=== PATIENT | male | born 1965 | race Caucasian/White ===

== ENCOUNTER 2016-07-17 14:40 | Inpatient (IN) | payer OTHER ==
[2016-07-17 15:24] VITALS: BMI 20.7
--- NOTE | 2016-07-17 17:20 | HP ---
CIWA Score - CIWA Score Nausea/Vomitin Muscle Tremors: 3 Anxiety: 3 Agitation: 3 Paroxysmal Sweats: 2 Orientation: 0-Oriented Tacttile Disturbances: 2-Mild Itch/Numbness/Burn Auditory Disturbances: 2-Mild Harshness/Frighten Visual Disturbances: 2-Mild Sensitivity Headache: 2-Mild CIWA-Ar Total Score: 22 Admission ROS BHS - HPI Chief Complaint: i need help to stop drinking alcohol,cocaine and marijuana,seeking detox,last detox 09/07/14 to 09/10/14 several admissions in the past longest period of sobriety 4 years Allergies/Adverse Reactions: Allergies Allergy/AdvReac Type Severity Reaction Status Date / Time No Known Drug Allergies Allergy Verified 09/07/14 19:35 TUNA FISH Allergy Uncoded 09/07/14 19:05 History of Present Illness: this 50 years old male with alcohol,cocaine and marijuana for detox as mentioned above - Ebola screening Have you traveled outside of the country in the last 21 days: No Have you had contact with anyone from an Ebola affected area: No Have you been sick,other than usual withdrawal symptoms: No Do you have a fever: No - Review of Systems Constitutional: Loss of Appetite, Malaise, Night Sweats, Changes in sleep, Weakness, Unintentional Wgt. Loss EENT: reports: Nose Congestion Respiratory: reports: No Symptoms reported, Other (asthma) Cardiac: reports: No Symptoms Reported GI: reports: Diarrhea, Nausea, Vomiting, Indigestion, Abdominal cramping : reports: No Symptoms Reported Musculoskeletal: reports: Back Pain, Muscle Pain Integumentary: reports: Dryness Neuro: reports: Headache, Tremors Endocrine: reports: No Symptoms Reported Hematology: reports: No Symptoms Reported Psychiatric: reports: No Sypmtoms Reported, Judgement Intact, Mood/Affect Appropiate, Orientated x3 (bipoloar disorder), other Patient History - Patient Medical History Hx Anemia: No Hx Asthma: No Hx Chronic Obstructive Pulmonary Disease (COPD): No Hx Cancer: No Hx Cardiac Disorders: No Hx Congestive Heart Failure: No Hx Hypertension: No Hx Hypercholesterolemia: No Hx Pacemaker: No HX Cerebrovascular Accident: No Hx Seizures: No Hx Dementia: No Hx Diabetes: No Hx Gastrointestinal Disorders: No Hx Liver Disease: No Hx Genitourinary Disorders: No Hx Sexually Transmitted Disorders: No Hx Renal Disease (ESRD): No Hx Thyroid Disease: No Hx Human Immunodeficiency Virus (HIV): No (01/11 NEGATIVE LAST) Hx Hepatitis C: No Hx Depression: Yes (NON COMPLIANCE) Hx Suicide Attempt: No Hx Bipolar Disorder: Yes Hx Schizophrenia: No Other Medical History: no suicidal,no homicidal - Patient Surgical History Past Surgical History: Yes Hx Neurologic Surgery: No Hx Cataract Extraction: No Hx Cardiac Surgery: No Hx Lung Surgery: No Hx Breast Surgery: No Hx Breast Biopsy: No Hx Abdominal Surgery: Yes (LAP CHOLECYSTECTOMY 2013 [place]) Hx Appendectomy: No Hx Cholecystectomy: No Hx Genitourinary Surgery: No Hx Section: No Hx Orthopedic Surgery: No Anesthesia Reaction: No - PPD History Previous Implant?: Yes Implanted On Prior [facility] Admission?: Yes Date: 09/09/14 Results: 0 mm PPD to be Administered?: Yes - Smoking Cessation Smoking history: Current every day smoker Have you smoked in the past 12 months: Yes Aproximately how many cigarettes per day: 20 Cigars Per Day: 0 Hx Chewing Tobacco Use: No Initiated information on smoking cessation: Yes 'Breaking Loose' booklet given: 07/17/16 - Substance & Tx. History Hx Alcohol Use: Yes Hx Substance Use: Yes Substance Use Type: Alcohol, Cocaine, Marijuana Hx Substance Use Treatment: Yes ([facility] 09/07/14 to 09/11/14) - Substances Abused Alcohol Route: Oral Frequency: Daily Amount used: 1 pint of bacardi/6 packs of 16 ozs of beer Age of first use: 27 Date of Last Use: 07/17/16 Cocaine Route: Inhalation Frequency: 1-2 times per week Amount used: 20$ Age of first use: 27 Date of Last Use: 07/16/16 Marijuana/Hashish Route: Smoking Frequency: 1-3 times last 30 days Amount used: 5$ Age of first use: 27 Date of Last Use: 07/16/16 Family Disease History - Family Disease History Family History: Denies Admission Physical Exam [facility] - Vital Signs Vital Signs: Vital Signs - 24 hr 07/17/16 15:22 Temperature 97 F L Pulse Rate 82 Respiratory 20 Rate Blood Pressure 124/75 - Physical General Appearance: Yes: Moderate Distress, Tremorous, Irritable, Sweating HEENTM: Yes: Normocephalic, ANGELA, Pharynx Normal Respiratory: Yes: Lungs Clear, Normal Breath Sounds, No Respiratory Distress Neck: Yes: Within Normal Limits, Supple, Trachea in good position Breast: Yes: Within Normal Limits Cardiology: Yes: Within Normal Limits, Regular Rhythm, Regular Rate, S1, S2 Abdominal: Yes: Within Normal Limits, Normal Bowel Sounds, Non Tender, Flat, Soft Genitourinary: Yes: Within Normal Limits Musculoskeletal: Yes: Within Normal Limits, full range of Motion, Back pain Extremities: Yes: Within Normal Limits, Normal Range of Motion, Tremors Neurological: Yes: service officer II-XII NML intact, Fully Oriented, Motor Strength 5/5 Integumentary: Yes: Dry Lymphatic: Yes: Within Normal Limits - Diagnostic (1) Alcohol dependence with uncomplicated withdrawal Current Visit: Yes Status: Acute (2) Cannabis dependence Current Visit: No Status: Acute (3) Cocaine dependence Current Visit: No Status: Acute (4) Bipolar disorder Current Visit: No Status: Active (5) Nicotine dependence Current Visit: No Status: Acute (6) Weight loss Current Visit: Yes Status: Acute Cleared for Admission [facility] - Detox or Rehab [facility] Level of Care: Medically Managed Detox Regimen/Protocol: Valium S Breath Alcohol Content Breath Alcohol Content: 0 Urine Drug Screen - Results Drug Screen Negative: No Urine Drug Screen Results: PETER-Cocaine
[2016-07-17] MEDS ORDERED: guaiFENesin/D-METHORPHAN HB 10 ML UNIT-DOSE CUPS PO PRN (17:32)
[2016-07-17] MEDS ORDERED: MAG HYDROX/AL HYDROX/SIMETH 30 ML UNIT-DOSE CUP PO PRN (17:32)
[2016-07-17] MEDS ORDERED: MENTHOL/PHENOL 1 EACH UD MM PRN (17:32)
[2016-07-17] MEDS ORDERED: hydrOXYzine PAMOATE 50 MG CAPSULE (FP) PO PRN (17:32)
[2016-07-17] MEDS ORDERED: diazePAM 5 MG TABLET PO ONE (17:32)
[2016-07-17] MEDS ORDERED: MAGNESIUM CITRATE 300 ML BOTTLE PO PRN (17:32)
[2016-07-17] MEDS ORDERED: ACETAMINOPHEN 325 MG TABLET (FP) PO PRN (17:32)
[2016-07-17] MEDS ORDERED: diphenhydrAMINE HCL 50 MG CAPSULE PO PRN (17:32)
[2016-07-17] MEDS ORDERED: IBUPROFEN 400 MG TABLET (FP) PO PRN (17:32)
[2016-07-17] MEDS ORDERED: MAGNESIUM HYDROX 2400MG/30ML ORAL SUSPENSION 30 ML CUP PO PRN (17:32)
[2016-07-17] MEDS ORDERED: P-EPHED 60MG/TRIPROLIDI 2.5MG TABLET PO PRN (17:32)
[2016-07-17] MEDS ORDERED: LOPERAMIDE HCL 2 MG CAPSULE PO PRN (17:32)
[2016-07-17] MEDS ORDERED: ALBUTEROL SO4 6.7 GM HFA INHALER IH PRN (18:58)
[2016-07-17] MEDS: NICOTINE 21 MG/24 HOURS TOPICAL PATCH TD SCH (19:00)
[2016-07-17 19:36] LABS: URINE APPEARANCE CLEAR; URINE BILIRUBIN NEGATIVE (NEGATIVE); URINE BLOOD NEGATIVE (NEGATIVE); URINE COLOR YELLOW; URINE GLUCOSE (UA) NEGATIVE (NEGATIVE); URINE KETONE NEGATIVE (NEGATIVE); URINE LEUK ESTERASE NEGATIVE (NEGATIVE); URINE NITRITE NEGATIVE (NEGATIVE); URINE PROTEIN NEGATIVE (NEGATIVE); URINE UROBILINOGEN NEGATIVE E.U./dl (0.2-1.0)
[2016-07-17] MEDS: THIAMINE HCL 100 MG TABLET (FP) PO SCH (22:52)
[2016-07-17] MEDS: QUEtiapine FUMARATE 100 MG TABLET (FP) PO SCH (22:52)
[2016-07-17] MEDS: diazePAM 5 MG TABLET PO SCH (22:52)
[2016-07-18] MEDS: diazePAM 5 MG TABLET PO SCH ×3 (06:01→22:37)
[2016-07-18 10:34] LABS: ALBUMIN 3.5 g/dl (3.4-5.0); ANION GAP 7 (8-16); CALCIUM 8.6 mg/dL (8.5-10.1); CO2 28 mmol/L (21-32); GLUCOSE,RANDOM 99 mg/dL (74-106); SGOT/AST 16 U/L (15-37); SGPT/ALT 19 U/L (12-78)
[2016-07-18] MEDS: NICOTINE 21 MG/24 HOURS TOPICAL PATCH TD SCH (10:35)
[2016-07-18] MEDS: PRENATAL VITAMINS W/ FOLIC ACID TABLET (FP) PO SCH (10:35)
[2016-07-18 10:37] LABS: ALK PHOS 93 U/L (45-117); BILIRUBIN,TOTAL 0.3 mg/dL (0.2-1.0); COCKROFT - GAULT 66.88; CREATININE 1.2 mg/dL (0.7-1.3); TOT PROT 6.6 g/dl (6.4-8.2)
--- NOTE | 2016-07-18 11:06 | EKG ---
Test Reason : Blood Pressure : / mmHG Vent. Rate : 068 BPM Atrial Rate : 068 BPM P-R Int : 116 ms QRS Dur : 088 ms QT Int : 438 ms P-R-T Axes : 062 048 060 degrees QTc Int : 465 ms NORMAL SINUS RHYTHM NORMAL ECG NO PREVIOUS ECGS AVAILABLE Confirmed by MD JOSEFA, SHNAI ([id number]) on 07/18/2016 11:06:13 AM Referred By: Confirmed By:SHANI RIVERO MD
[2016-07-18 11:20] LABS: MCH 30.2 pg (25.7-33.7); MCHC 33.3 g/dl (32.0-35.9); MEAN CELL VOLUME 90.8 fl (80-96); MEAN PLT VOLUME 9.1 fl (7.5-11.1); PLATELET COUNT 332 K/MM3 (134-434); RDW 14.8 % (11.9-15.9); WHITE BLOOD COUNT 7.8 K/mm3 (4.0-10.0)
[2016-07-18 11:28] LABS: HIV 1 & 2 AB NEGATIVE; HIV 1 AGp24 NEGATIVE
--- NOTE | 2016-07-18 17:18 | PN ---
S CIWA - CIWA Score Nausea/Vomitin Muscle Tremors: 4-Moderate,w/Arms Extend Anxiety: 4-Mod. Anxious/Guarded Agitation: 4-Moderately Restless Paroxysmal Sweats: No Perspiration Orientation: 0-Oriented Tacttile Disturbances: 1-Very Mild Itch/Numbness Auditory Disturbances: 0-None Visual Disturbances: 0-None Headache: 3-Moderate CIWA-Ar Total Score: 19 BHS Progress Note (SOAP) Subjective: Sweating, anxious, tremor, chills, interrupted sleep Objective: 07/18/16 17:17 Last Vital Signs Temp Pulse Resp BP Pulse Ox 97 F L 83 20 112/74 07/18/16 13:53 07/18/16 13:53 07/18/16 13:53 07/18/16 13:53 Laboratory Tests 07/17/16 07/18/16 07/18/16 19:00 07:40 07:40 WBC 7.8 RBC 4.57 Hgb 13.8 Hct 41.5 MCV 90.8 MCHC 33.3 RDW 14.8 Plt Count 332 MPV 9.1 Sodium 141 Potassium 4.1 Chloride 106 Carbon Dioxide 28 Anion Gap 7 L BUN 20 H D Creatinine 1.2 Creat Clearance w eGFR > 60 Random Glucose 99 Calcium 8.6 Total Bilirubin 0.3 D AST 16 ALT 19 Alkaline Phosphatase 93 D Total Protein 6.6 Albumin 3.5 Urine Color Yellow Urine Appearance Clear Urine pH 5.0 Ur Specific [place] >= 1.030 H Urine Protein Negative Urine Glucose (UA) Negative Urine Ketones Negative Urine Blood Negative Urine Nitrite Negative Urine Bilirubin Negative Urine Urobilinogen Negative Ur Leukocyte Esterase Negative RPR Titer HIV 1&2 Antibody Screen HIV P24 Antigen 07/18/16 07/18/16 07:40 07:40 WBC RBC Hgb Hct MCV MCHC RDW Plt Count MPV Sodium Potassium Chloride Carbon Dioxide Anion Gap BUN Creatinine Creat Clearance w eGFR Random Glucose Calcium Total Bilirubin AST ALT Alkaline Phosphatase Total Protein Albumin Urine Color Urine Appearance Urine pH Ur Specific [place] Urine Protein Urine Glucose (UA) Urine Ketones Urine Blood Urine Nitrite Urine Bilirubin Urine Urobilinogen Ur Leukocyte Esterase RPR Titer Nonreactive HIV 1&2 Antibody Screen Negative HIV P24 Antigen Negative Labs noted Assessment: 07/18/16 17:17 Withdrawal symptoms Plan: Continue detox Encouraged to drink lots of water
[2016-07-18] MEDS: QUEtiapine FUMARATE 100 MG TABLET (FP) PO SCH (22:35)
[2016-07-18] MEDS: THIAMINE HCL 100 MG TABLET (FP) PO SCH (22:35)
[2016-07-19] MEDS: diazePAM 5 MG TABLET PO PRN (06:08)
[2016-07-19] MEDS: PRENATAL VITAMINS W/ FOLIC ACID TABLET (FP) PO SCH (10:37)
[2016-07-19] MEDS: diazePAM 5 MG TABLET PO SCH ×2 (10:38→23:00)
[2016-07-19] MEDS: NICOTINE 21 MG/24 HOURS TOPICAL PATCH TD SCH (10:38)
[2016-07-19] MEDS: BACITRACIN 0.9 GM PACKET TP SCH ×2 (11:13→22:56)
--- NOTE | 2016-07-19 11:13 | PN ---
S Progress Note Note: Patient was found in bed very irritable. He did not want to be seen
[2016-07-19] MEDS ORDERED: ONDANSETRON *ODT* 4 MG TABLET SL PRN (13:11)
--- NOTE | 2016-07-19 13:17 | PN ---
S CIWA - CIWA Score Nausea/Vomitin Muscle Tremors: 3 Anxiety: 4-Mod. Anxious/Guarded Agitation: 3 Paroxysmal Sweats: 2 Orientation: 4Disoriented Place/Person Tacttile Disturbances: 0-None Auditory Disturbances: 0-None Visual Disturbances: 0-None Headache: 3-Moderate CIWA-Ar Total Score: 22 BHS Progress Note (SOAP) Subjective: Lower Back Ache, H/A, Interrupted Sleep, Tremors. Objective: PT. A & O X 2 (DISORIENTED ABOUT CURRENT LOCATION). PT. OBSERVED AMBULATING ON UNIT. 07/19/16 13:13 Vital Signs Temperature 97.2 F L 07/19/16 09:58 Pulse Rate 66 07/19/16 09:58 Respiratory Rate 18 07/19/16 09:58 Blood Pressure 110/76 07/19/16 09:58 O2 Sat by Pulse Oximetry (%) Laboratory Tests 07/17/16 07/18/16 07/18/16 19:00 07:40 07:40 WBC 7.8 RBC 4.57 Hgb 13.8 Hct 41.5 MCV 90.8 MCHC 33.3 RDW 14.8 Plt Count 332 MPV 9.1 Sodium 141 Potassium 4.1 Chloride 106 Carbon Dioxide 28 Anion Gap 7 L BUN 20 H D Creatinine 1.2 Creat Clearance w eGFR > 60 Random Glucose 99 Calcium 8.6 Total Bilirubin 0.3 D AST 16 ALT 19 Alkaline Phosphatase 93 D Total Protein 6.6 Albumin 3.5 Urine Color Yellow Urine Appearance Clear Urine pH 5.0 Ur Specific [place] >= 1.030 H Urine Protein Negative Urine Glucose (UA) Negative Urine Ketones Negative Urine Blood Negative Urine Nitrite Negative Urine Bilirubin Negative Urine Urobilinogen Negative Ur Leukocyte Esterase Negative RPR Titer HIV 1&2 Antibody Screen HIV P24 Antigen 07/18/16 07/18/16 07:40 07:40 WBC RBC Hgb Hct MCV MCHC RDW Plt Count MPV Sodium Potassium Chloride Carbon Dioxide Anion Gap BUN Creatinine Creat Clearance w eGFR Random Glucose Calcium Total Bilirubin AST ALT Alkaline Phosphatase Total Protein Albumin Urine Color Urine Appearance Urine pH Ur Specific [place] Urine Protein Urine Glucose (UA) Urine Ketones Urine Blood Urine Nitrite Urine Bilirubin Urine Urobilinogen Ur Leukocyte Esterase RPR Titer Nonreactive HIV 1&2 Antibody Screen Negative HIV P24 Antigen Negative LABS NOTED. Assessment: 07/19/16 13:15 WITHDRAWAL SYMPTOMS. Plan: CONTINUE DETOX. REMINDED PATIENT ABOUT IMPORTANCE OF TAKING ALL MEDICATIONS, INCLUDING DETOX MEDICATIONS, PRESCRIBED AND AT PRESCRIBED TIMES. PATIENT VERBALIZED UNDERSTANDING OF RECOMMENDATION.
[2016-07-19] MEDS ORDERED: diphenhydrAMINE HCL 25 MG CAPSULE (FP) PO PRN (20:33)
[2016-07-19] MEDS ORDERED: LIDOCAINE HCL 5% TOP OINTMENT 50 GM TUBE TP PRN (20:40)
[2016-07-19] MEDS: THIAMINE HCL 100 MG TABLET (FP) PO SCH (22:58)
[2016-07-19] MEDS: QUEtiapine FUMARATE 100 MG TABLET (FP) PO SCH (22:58)
[2016-07-20] MEDS: diazePAM 5 MG TABLET PO PRN (05:55)
[2016-07-20 09:36] VITALS: BP 130/84; PULSE 78; TEMP 97
[2016-07-20] MEDS: diazePAM 5 MG TABLET PO SCH (10:39)
[2016-07-20] MEDS: BACITRACIN 0.9 GM PACKET TP SCH (10:39)
[2016-07-20] MEDS: NICOTINE 21 MG/24 HOURS TOPICAL PATCH TD SCH (10:39)
[2016-07-20] MEDS: PRENATAL VITAMINS W/ FOLIC ACID TABLET (FP) PO SCH (10:39)
--- NOTE | 2016-07-20 12:10 | PN ---
BHS Progress Note (SOAP) Subjective: Sweating,interrupted sleep,restless Objective: 07/20/16 12:09 Vital Signs - 8 hr 07/20/16 07/20/16 06:28 09:35 Temperature 97.4 F L 97.0 F L Pulse Rate 82 78 Respiratory 18 18 Rate Blood Pressure 114/70 130/84 Laboratory Last Values WBC 7.8 K/mm3 (4.0-10.0) 07/18/16 07:40 RBC 4.57 M/mm3 (4.00-5.60) 07/18/16 07:40 Hgb 13.8 GM/dL (11.7-16.9) 07/18/16 07:40 Hct 41.5 % (35.4-49) 07/18/16 07:40 MCV 90.8 fl (80-96) 07/18/16 07:40 MCHC 33.3 g/dl (32.0-35.9) 07/18/16 07:40 RDW 14.8 % (11.9-15.9) 07/18/16 07:40 Plt Count 332 K/MM3 (134-434) 07/18/16 07:40 MPV 9.1 fl (7.5-11.1) 07/18/16 07:40 Sodium 141 mmol/L (136-145) 07/18/16 07:40 Potassium 4.1 mmol/L (3.5-5.1) 07/18/16 07:40 Chloride 106 mmol/L (98-107) 07/18/16 07:40 Carbon Dioxide 28 mmol/L (21-32) 07/18/16 07:40 Anion Gap 7 (8-16) L 07/18/16 07:40 BUN 20 mg/dL (7-18) H D 07/18/16 07:40 Creatinine 1.2 mg/dL (0.7-1.3) 07/18/16 07:40 Creat Clearance w eGFR > 60 (>60) 07/18/16 07:40 Random Glucose 99 mg/dL (74-106) 07/18/16 07:40 Calcium 8.6 mg/dL (8.5-10.1) 07/18/16 07:40 Total Bilirubin 0.3 mg/dL (0.2-1.0) D 07/18/16 07:40 AST 16 U/L (15-37) 07/18/16 07:40 ALT 19 U/L (12-78) 07/18/16 07:40 Alkaline Phosphatase 93 U/L (45-117) D 07/18/16 07:40 Total Protein 6.6 g/dl (6.4-8.2) 07/18/16 07:40 Albumin 3.5 g/dl (3.4-5.0) 07/18/16 07:40 Urine Color Yellow 07/17/16 19:00 Urine Appearance Clear 07/17/16 19:00 Urine pH 5.0 (5.0-8.0) 07/17/16 19:00 Ur Specific [place] >= 1.030 (1.005-1.025) H 07/17/16 19:00 Urine Protein Negative (NEGATIVE) 07/17/16 19:00 Urine Glucose (UA) Negative (NEGATIVE) 07/17/16 19:00 Urine Ketones Negative (NEGATIVE) 07/17/16 19:00 Urine Blood Negative (NEGATIVE) 07/17/16 19:00 Urine Nitrite Negative (NEGATIVE) 07/17/16 19:00 Urine Bilirubin Negative (NEGATIVE) 07/17/16 19:00 Urine Urobilinogen Negative E.U./dl (0.2-1.0) 07/17/16 19:00 Ur Leukocyte Esterase Negative (NEGATIVE) 07/17/16 19:00 RPR Titer Nonreactive (NONREACTIVE) 07/18/16 07:40 Hepatitis C Antibody 0.1 s/co ratio (0.0-0.9) 07/18/16 07:40 HIV 1&2 Antibody Screen Negative 07/18/16 07:40 HIV P24 Antigen Negative 07/18/16 07:40 labs noted Assessment: 07/20/16 12:10 Withdrawal sx. Plan: Continue detox
--- NOTE | 2016-07-20 15:50 | DS ---
[facility] Detox Discharge Summary Admission Date: 07/17/16 Discharge Date: 07/20/16 - History Present History: Alcohol Dependence, Cannabis Dependence, Cocaine Dependence Pertinent Past History: Asthma - Physical Exam Results Vital Signs: Vital Signs Temperature 97.0 F L 07/20/16 09:35 Pulse Rate 78 07/20/16 09:35 Respiratory Rate 18 07/20/16 09:35 Blood Pressure 130/84 07/20/16 09:35 O2 Sat by Pulse Oximetry (%) Pertinent Admission Physical Exam Findings: Withdrawal sx. Laboratory Last Values WBC 7.8 K/mm3 (4.0-10.0) 07/18/16 07:40 RBC 4.57 M/mm3 (4.00-5.60) 07/18/16 07:40 Hgb 13.8 GM/dL (11.7-16.9) 07/18/16 07:40 Hct 41.5 % (35.4-49) 07/18/16 07:40 MCV 90.8 fl (80-96) 07/18/16 07:40 MCHC 33.3 g/dl (32.0-35.9) 07/18/16 07:40 RDW 14.8 % (11.9-15.9) 07/18/16 07:40 Plt Count 332 K/MM3 (134-434) 07/18/16 07:40 MPV 9.1 fl (7.5-11.1) 07/18/16 07:40 Sodium 141 mmol/L (136-145) 07/18/16 07:40 Potassium 4.1 mmol/L (3.5-5.1) 07/18/16 07:40 Chloride 106 mmol/L (98-107) 07/18/16 07:40 Carbon Dioxide 28 mmol/L (21-32) 07/18/16 07:40 Anion Gap 7 (8-16) L 07/18/16 07:40 BUN 20 mg/dL (7-18) H D 07/18/16 07:40 Creatinine 1.2 mg/dL (0.7-1.3) 07/18/16 07:40 Creat Clearance w eGFR > 60 (>60) 07/18/16 07:40 Random Glucose 99 mg/dL (74-106) 07/18/16 07:40 Calcium 8.6 mg/dL (8.5-10.1) 07/18/16 07:40 Total Bilirubin 0.3 mg/dL (0.2-1.0) D 07/18/16 07:40 AST 16 U/L (15-37) 07/18/16 07:40 ALT 19 U/L (12-78) 07/18/16 07:40 Alkaline Phosphatase 93 U/L (45-117) D 07/18/16 07:40 Total Protein 6.6 g/dl (6.4-8.2) 07/18/16 07:40 Albumin 3.5 g/dl (3.4-5.0) 07/18/16 07:40 Urine Color Yellow 07/17/16 19:00 Urine Appearance Clear 07/17/16 19:00 Urine pH 5.0 (5.0-8.0) 07/17/16 19:00 Ur Specific [place] >= 1.030 (1.005-1.025) H 07/17/16 19:00 Urine Protein Negative (NEGATIVE) 07/17/16 19:00 Urine Glucose (UA) Negative (NEGATIVE) 07/17/16 19:00 Urine Ketones Negative (NEGATIVE) 07/17/16 19:00 Urine Blood Negative (NEGATIVE) 07/17/16 19:00 Urine Nitrite Negative (NEGATIVE) 07/17/16 19:00 Urine Bilirubin Negative (NEGATIVE) 07/17/16 19:00 Urine Urobilinogen Negative E.U./dl (0.2-1.0) 07/17/16 19:00 Ur Leukocyte Esterase Negative (NEGATIVE) 07/17/16 19:00 RPR Titer Nonreactive (NONREACTIVE) 07/18/16 07:40 Hepatitis C Antibody 0.1 s/co ratio (0.0-0.9) 07/18/16 07:40 HIV 1&2 Antibody Screen Negative 07/18/16 07:40 HIV P24 Antigen Negative 07/18/16 07:40 labs noted - Treatment Hospital Course: Detox Protocol Followed, Detoxed Safely, Responded well, Discharged Condition Good Patient has Accepted a Rehab Referral to: 12 step meetings - Medication Discharge Medications: Ambulatory Orders Albuterol Sulfate *Inhaler* 2 ih PO PRN 03/04/12 Ambien 10 mg PO HS 03/04/12 Quetiapine Fumarate [Seroquel -] 100 mg PO HS #30 tab 09/09/14 - Diagnosis (1) Alcohol dependence with uncomplicated withdrawal Status: Acute (2) Cannabis dependence Status: Acute (3) Cocaine dependence Status: Acute Qualifiers: Substance use status: uncomplicated Qualified Code(s): F14.20 - Cocaine dependence, uncomplicated (4) Asthma Status: Acute Qualifiers: Asthma severity: mild intermittent Asthma complication type: uncomplicated Qualified Code(s): J45.20 - Mild intermittent asthma, uncomplicated - AMA Did Patient Leave Against Medical Advice: No
[2016-07-21] MEDS ORDERED: diazePAM 5 MG TABLET PO SCH (10:00)
== END 2016-07-20 13:24 | disposition home or self-care (01) | DRG 774 ==
LOC: YASAS 14:40 → Y3N 17:29
PROVIDERS: ADMIT Internal Medicine; ATTEND Internal Medicine
PROC: HZ2ZZZZ Detoxification Services for Substance Abuse Treatment (ICD-10-PCS; principal; 2016-07-17)
DX: F10.230 Alcohol dependence with withdrawal, uncomplicated (principal); F14.20 Cocaine dependence, uncomplicated; F12.20 Cannabis dependence, uncomplicated; F17.210 Nicotine dependence, cigarettes, uncomplicated; F31.9 Bipolar disorder, unspecified; J45.20 Mild intermittent asthma, uncomplicated; Z87.898 Personal history of other specified conditions; Z91.14 Patient's other noncompliance with medication regimen; Z59.0 Homelessness
CPT/HCPCS: 36415; 80053; 81003; 85027; 86593; 86803; 87389; 93005; 93010